=== PATIENT | male | born 1935 | race Caucasian/White ===

== ENCOUNTER 2018-05-13 17:18 | Inpatient (IN) | payer MEDICARE ==
[~2018-05-13] VITALS: Ht 157.5 cm; Wt 72.6 kg
[2018-05-13] VITALS (7 sets, daily range): BP systolic 71–100
[2018-05-13] MEDS ORDERED: NACL 0.9% 1,000 ML IV ONE ×3 (17:45→20:00)
[2018-05-13 17:57] LABS: BASOPHILS % (AUTO) 0.1 % (0.0-2.0); EOSINOPHILS % (AUTO) 0.1 % (0.0-4.0); HEMATOCRIT 38.9 % (36-54); HEMOGLOBIN 12.9 g/dL (14.0-18.0); LYMPHOCYTES # (AUTO) 0.7 K/uL (1.0-5.5); LYMPHOCYTES % (AUTO) 7.3 % (20.5-51.5); MEAN CORPUSCULAR HEMOGLOBIN 32 pg (27-31); MEAN CORPUSCULAR HGB CONC 33 % (32-36); MEAN CORPUSCULAR VOLUME 97 fL (79.0-98.0); MONOCYTES # (AUTO) 0.1 K/uL (0.0-1.0); MONOCYTES % (AUTO) 1.4 % (1.7-9.3); NEUTROPHILS # (AUTO) 8.6 K/uL (1.8-7.7); NEUTROPHILS % (AUTO) 91.1 % (40.0-70.0); PLATELET COUNT (AUTO) 175 K/uL (130-430); RED BLOOD CELL COUNT(AUTO) 4.01 MIL/uL (4.2-6.2); RED CELL DISTRIBUTION WIDTH 13.3 % (9.0-15.0); WHITE BLOOD COUNT (AUTO) 9.4 K/uL (4.8-10.8)
[2018-05-13 18:04] LABS: ANION GAP 15 (5-15); CALCIUM 8.8 mg/dL (8.4-11.0); CHLORIDE 100 mmol/L (98-107); CREATININE 1.61 mg/dL (0.55-1.30); GLUCOSE 168 mg/dL (70-99); POTASSIUM 3.4 mmol/L (3.5-5.1); SODIUM SERUM 137 mmol/L (136-145); UREA NITROGEN, BLOOD 24 mg/dL (8-21)
[2018-05-13 18:07] LABS: INR 1.1 (0.80-1.20); PROTHROMBIN TIME 11.5 SECS (9.5-12.5)
[2018-05-13 18:14] LABS: ALANINE AMINOTRANSFERASE 82 U/L (12-78); ALBUMIN 3.2 g/dL (3.4-4.8); ASPARTATE AMINOTRANSFERASE 152 U/L (10-37); FREE T4 (FREE THYROXINE) 1.3 ng/dl (0.8-1.5); TOTAL BILIRUBIN 0.9 mg/dL (0.0-1.0)
[2018-05-13 18:16] LABS: ALCOHOL, BLOOD < 3 mg/dL (<10)
[2018-05-13] MEDS ORDERED: POTASSIUM CHLORIDE 40 MEQ in NS 250 ML IV ONE (18:30)
[2018-05-13] MEDS ORDERED: ASPIRIN 81 MG TAB.CHEW PO ONE (18:30)
[2018-05-13] MEDS ORDERED: PIPERACILLIN/TAZO 3.375 GM in NS 50 ML IV ONE (18:45)
[2018-05-13] MEDS ORDERED: KCL 20 mEq in 100 mL (PREMIX) 200 ML IV ONE (18:55)
[2018-05-13] MEDS ORDERED: PIPERACILLIN/TAZOBACTAM 3.375 GM/VIAL (ZOSYN) IV ONE ×2 (19:22→20:27)
[2018-05-13 19:28] LABS: BILIRUBIN,URINE NEGATIVE (NEGATIVE); CLARITY/URINE SL CLOUDY (CLEAR); COLOR,URINE YELLOW (YELLOW); GLUCOSE,URINE NEGATIVE (NEGATIVE); KETONES,URINE 1+ (NEGATIVE); PH,URINE 5.5 (5.0-8.0); PROTEIN URINE 2+ (NEGATIVE)
[2018-05-13 19:29] LABS: BLOOD, URINE 3+ (NEGATIVE); LEUKOCYTE ESTERASE ,URINE 1+ (NEGATIVE); NITRITE, URINE POSITIVE (NEGATIVE)
[2018-05-13] MEDS: IPRATROPIUM/ALBUTEROL SULFATE 3 ML AMPUL.NEB (DUONEB) INH SCH (19:30)
[2018-05-13] MEDS ORDERED: ACETAMINOPHEN 650 MG SUPP.RECT RC PRN (19:30)
[2018-05-13] MEDS ORDERED: VANCOMYCIN HCL 1,000 MG in NS 250 ML IV ONE (19:30)
[2018-05-13] MEDS ORDERED: ENOXAPARIN SODIUM 60 MG/0.6 ML SYRINGE SUBCUT ONE (19:30)
[2018-05-13] MEDS ORDERED: FAMOTIDINE 20 MG TABLET PO ONE (19:45)
[2018-05-13 19:46] LABS: METHAMPHETAMINES SCREEN,URINE POSITIVE (NEG <=500)
[2018-05-13 19:48] LABS: BARBITURATE, URINE NEGATIVE (NEG <=200); BENZODIAZEPINE, URINE NEGATIVE (NEG <=150); CANNABINOID, URINE NEGATIVE (NEG <=50); COCAINE, URINE NEGATIVE (NEG <=150); OPIATE, URINE NEGATIVE (NEG <=100); PHENCYCLIDINE SCREEN,URINE NEGATIVE (NEG <=25); UR TRICYCLIC ANTIDEPRESSANTS NEGATIVE (NEG <=300); URINE AMPHETAMINE NEGATIVE (NEG <=500); URINE METHADONE NEGATIVE (NEG <=200); URINE OXYCODONE SCREEN NEGATIVE (NEG <=100); URINE PROPOXYPHENE SCREEN NEGATIVE (NEG <=300)
[2018-05-13 19:54] LABS: BACTERIA,URINE MANY /HPF (None Seen); MUCUS,URINE 1+ /LPF (None Seen); RBC,URINE 20-50 /HPF (0-3); URINE AMORPHOUS URATE 1+ /HPF (None Seen); WBC,URINE 80-100 /HPF (0-3)
[2018-05-13] MEDS ORDERED: D5/0.45 NS 1,000 ML IV SCH (20:00)
[2018-05-13] MEDS ORDERED: NOREPINEPHRINE 4 MG/4 ML VIAL IV ONE (20:04)
[2018-05-13 20:08] LABS: CKMB RELATIVE INDEX 0.6 (0.0-2.9); CREATINE KINASE MB 21.3 ng/mL (0-3.6)
[2018-05-13] MEDS ORDERED: VANCOMYCIN HCL 1000 MG/VIAL IV ONE (20:27)
[2018-05-13] MEDS: NACL 0.9% 1,000 ML IV SCH (21:21)
[2018-05-13 21:42] LABS: ANION GAP 14 (5-15); CALCIUM 7.6 mg/dL (8.4-11.0); CHLORIDE 106 mmol/L (98-107); GLUCOSE 143 mg/dL (70-99); POTASSIUM 3.7 mmol/L (3.5-5.1); SODIUM SERUM 140 mmol/L (136-145); UREA NITROGEN, BLOOD 25 mg/dL (8-21)
[2018-05-13 21:48] LABS: CREATININE 1.46 mg/dL (0.55-1.30)
[2018-05-13] MEDS: PIPERACILLIN/TAZO 3.375 GM in NS 50 ML IV SCH (21:57)
[2018-05-13] MEDS: HYDROCORTISONE SOD SUCC 100 MG/2 ML VIAL IVP SCH (21:57)
[2018-05-14] VITALS (24 sets, daily range): BP systolic 85–118
[2018-05-14] MEDS ORDERED: NOREPINEPHRINE 4 MG/4 ML VIAL IV ONE ×2 (01:02→13:00)
[2018-05-14] MEDS: NOREPINEPHRINE BITARTRATE 4 MG in NS 246 ML IV PRN ×2 (01:13→13:09)
[2018-05-14] MEDS: IPRATROPIUM/ALBUTEROL SULFATE 3 ML AMPUL.NEB (DUONEB) INH SCH ×2 (01:20→21:43)
[2018-05-14] MEDS: PIPERACILLIN/TAZO 3.375 GM in NS 50 ML IV SCH ×3 (06:13→21:23)
[2018-05-14] MEDS: HYDROCORTISONE SOD SUCC 100 MG/2 ML VIAL IVP SCH ×3 (06:13→21:24)
[2018-05-14] MEDS: INSULIN ASPART 100 UNITS/ML, 10 ML VIAL (NovoLOG) SUBCUT PRN ×3 (06:23→17:57)
[2018-05-14] MEDS: NACL 0.9% 1,000 ML IV SCH ×3 (08:04→21:15)
[2018-05-14] MEDS ORDERED: LISI-209 PO (08:10)
[2018-05-14] MEDS ORDERED: METO25TA3 PO (08:10)
[2018-05-14] MEDS ORDERED: MELO15TA13 PO (08:10)
[2018-05-14] MEDS ORDERED: SIMV40TA2 PO (08:10)
[2018-05-14] MEDS ORDERED: GLU500 PO (08:10)
[2018-05-14] MEDS ORDERED: TAMS-11 PO (08:10)
[2018-05-14 09:07] LABS: HEMATOCRIT 37.2 % (36-54); HEMOGLOBIN 12.2 g/dL (14.0-18.0); MEAN CORPUSCULAR HEMOGLOBIN 32 pg (27-31); MEAN CORPUSCULAR HGB CONC 33 % (32-36); MEAN CORPUSCULAR VOLUME 97 fL (79.0-98.0); PLATELET COUNT (AUTO) 166 K/uL (130-430); RED BLOOD CELL COUNT(AUTO) 3.84 MIL/uL (4.2-6.2); RED CELL DISTRIBUTION WIDTH 13.4 % (9.0-15.0); WHITE BLOOD COUNT (AUTO) 19.2 K/uL (4.8-10.8)
[2018-05-14] MEDS ORDERED: NS 250 ML IV ONE (09:15)
[2018-05-14] MEDS ORDERED: ASPIRIN 81 MG TAB.CHEW PO ONE (09:15)
[2018-05-14 11:08] LABS: BAND % (MANUAL) 17 % (0-6); BASOPHILS % (MANUAL) 0 % (0-2); EOSINOPHILS % (MANUAL) 0 % (0-7); LYMPHOCYTES % (MANUAL) 7 % (20-46); MONOCYTES % (MANUAL) 5 % (0-11)
[2018-05-14] MEDS ORDERED: NS 500 ML IV ONE (11:30)
[2018-05-14] MEDS: FAMOTIDINE 20 MG TABLET PO SCH (11:43)
[2018-05-14] MEDS ORDERED: traMADol HCL HCL 50 MG TABLET (ULTRAM) PO PRN (12:00)
[2018-05-14] MEDS: LEVOFLOXACIN 250 MG/D5W 50 ML IV SCH (12:59)
[2018-05-14 15:40] LABS: CKMB RELATIVE INDEX 1.1 (0.0-2.9); CREATINE KINASE MB 60.5 ng/mL (0-3.6)
[2018-05-15] VITALS (24 sets, daily range): BP systolic 86–134
[2018-05-15] MEDS: INSULIN ASPART 100 UNITS/ML, 10 ML VIAL (NovoLOG) SUBCUT PRN ×4 (00:06→17:38)
[2018-05-15] MEDS: IPRATROPIUM/ALBUTEROL SULFATE 3 ML AMPUL.NEB (DUONEB) INH SCH ×4 (01:00→19:46)
[2018-05-15] MEDS: NACL 0.9% 1,000 ML IV SCH (03:17)
[2018-05-15] MEDS: PIPERACILLIN/TAZO 3.375 GM in NS 50 ML IV SCH ×3 (06:13→21:46)
[2018-05-15] MEDS: HYDROCORTISONE SOD SUCC 100 MG/2 ML VIAL IVP SCH ×3 (06:14→21:46)
[2018-05-15 07:00] LABS: BASOPHILS % (AUTO) 0.1 % (0.0-2.0); EOSINOPHILS % (AUTO) 0.1 % (0.0-4.0); HEMOGLOBIN 11.3 g/dL (14.0-18.0); LYMPHOCYTES % (AUTO) 5.7 % (20.5-51.5); MEAN CORPUSCULAR HEMOGLOBIN 32 pg (27-31); MEAN CORPUSCULAR HGB CONC 33 % (32-36); MEAN CORPUSCULAR VOLUME 97 fL (79.0-98.0); MONOCYTES # (AUTO) 0.9 K/uL (0.0-1.0); MONOCYTES % (AUTO) 4.9 % (1.7-9.3); NEUTROPHILS # (AUTO) 15.7 K/uL (1.8-7.7); PLATELET COUNT (AUTO) 162 K/uL (130-430); RED BLOOD CELL COUNT(AUTO) 3.51 MIL/uL (4.2-6.2); RED CELL DISTRIBUTION WIDTH 13.9 % (9.0-15.0); WHITE BLOOD COUNT (AUTO) 17.6 K/uL (4.8-10.8)
[2018-05-15 07:24] LABS: ALANINE AMINOTRANSFERASE 120 U/L (12-78); ALBUMIN 2.3 g/dL (3.4-4.8); ANION GAP 11 (5-15); ASPARTATE AMINOTRANSFERASE 169 U/L (10-37); CALCIUM 7.5 mg/dL (8.4-11.0); CHLORIDE 108 mmol/L (98-107); CHOLESTEROL 70 mg/dL (<200); CREATININE 0.75 mg/dL (0.55-1.30); GLUCOSE 178 mg/dL (70-99); HDL CHOLESTEROL 15 mg/dL (>45); LDL CHOLESTEROL 33 mg/dL (<100); LIPASE 72 U/L (73-393); POTASSIUM 3.7 mmol/L (3.5-5.1); SODIUM SERUM 140 mmol/L (136-145); THYROID STIMULATING HORMONE 1.76 uIu/mL (0.34-4.82); TOTAL BILIRUBIN 0.3 mg/dL (0.0-1.0); TRIGLYCERIDES 83 mg/dL (30-150); UREA NITROGEN, BLOOD 16 mg/dL (8-21)
[2018-05-15 07:27] LABS: NEUTROPHILS % (AUTO) 89.2 % (40.0-70.0)
[2018-05-15] MEDS: ASPIRIN 81 MG TAB.CHEW PO SCH (08:59)
[2018-05-15] MEDS: FAMOTIDINE 20 MG TABLET PO SCH (08:59)
[2018-05-15 09:12] LABS: CKMB RELATIVE INDEX 0.9 (0.0-2.9); CREATINE KINASE MB 33.6 ng/mL (0-3.6)
[2018-05-15] MEDS ORDERED: NS 500 ML IV ONE (09:15)
[2018-05-15] MEDS: 0.45% NACL 1,000 ML IV SCH ×2 (10:58→21:46)
[2018-05-15] MEDS: LEVOFLOXACIN 250 MG/D5W 50 ML IV SCH (11:02)
[2018-05-16] VITALS (12 sets, daily range): BP systolic 92–119
[2018-05-16] MEDS: IPRATROPIUM/ALBUTEROL SULFATE 3 ML AMPUL.NEB (DUONEB) INH SCH ×2 (00:15→07:46)
[2018-05-16] MEDS ORDERED: HALOPERIDOL LACTATE 5 MG/ML VIAL ONE (03:29)
[2018-05-16] MEDS ORDERED: LORazepam 2 MG/ML VIAL IM ONE (03:30)
[2018-05-16] MEDS ORDERED: HALOPERIDOL LACTATE 5 MG/ML VIAL IM ONE (03:30)
[2018-05-16] MEDS: PIPERACILLIN/TAZO 3.375 GM in NS 50 ML IV SCH ×3 (06:00→13:13)
[2018-05-16] MEDS: HYDROCORTISONE SOD SUCC 100 MG/2 ML VIAL IVP SCH ×3 (06:00→13:12)
[2018-05-16] MEDS: FAMOTIDINE 20 MG TABLET PO SCH (09:41)
[2018-05-16] MEDS: ASPIRIN 81 MG TAB.CHEW PO SCH (09:41)
[2018-05-16 11:03] LABS: BASOPHILS % (AUTO) 0.1 % (0.0-2.0); HEMATOCRIT 32.7 % (36-54); HEMOGLOBIN 10.5 g/dL (14.0-18.0); LYMPHOCYTES # (AUTO) 0.7 K/uL (1.0-5.5); LYMPHOCYTES % (AUTO) 3.8 % (20.5-51.5); MEAN CORPUSCULAR HEMOGLOBIN 31 pg (27-31); MEAN CORPUSCULAR HGB CONC 32 % (32-36); MEAN CORPUSCULAR VOLUME 97 fL (79.0-98.0); MONOCYTES # (AUTO) 0.6 K/uL (0.0-1.0); MONOCYTES % (AUTO) 3.1 % (1.7-9.3); NEUTROPHILS # (AUTO) 16.5 K/uL (1.8-7.7); PLATELET COUNT (AUTO) 185 K/uL (130-430); RED BLOOD CELL COUNT(AUTO) 3.38 MIL/uL (4.2-6.2); WHITE BLOOD COUNT (AUTO) 17.8 K/uL (4.8-10.8)
[2018-05-16 11:23] LABS: ANION GAP 11 (5-15); CALCIUM 7.4 mg/dL (8.4-11.0); CHLORIDE 107 mmol/L (98-107); GLUCOSE 196 mg/dL (70-99); POTASSIUM 3.3 mmol/L (3.5-5.1); SODIUM SERUM 141 mmol/L (136-145); UREA NITROGEN, BLOOD 15 mg/dL (8-21)
[2018-05-16 11:40] LABS: ALANINE AMINOTRANSFERASE 110 U/L (12-78); ALBUMIN 2.3 g/dL (3.4-4.8); ASPARTATE AMINOTRANSFERASE 116 U/L (10-37); TOTAL BILIRUBIN 0.6 mg/dL (0.0-1.0)
[2018-05-16] MEDS ORDERED: POTASSIUM CHLORIDE 10 MEQ TAB.PRT.SR PO ONE (12:00)
[2018-05-16 12:07] LABS: CKMB RELATIVE INDEX 0.3 (0.0-2.9); CREATINE KINASE MB 6.8 ng/mL (0-3.6)
[2018-05-16] MEDS: INSULIN ASPART 100 UNITS/ML, 10 ML VIAL (NovoLOG) SUBCUT PRN (13:11)
== END 2018-05-16 14:05 | disposition short-term general hospital (02) | DRG 871 ==
LOC: SED 17:18 → SIC 18:52
PROVIDERS: ADMIT Internal Medicine; ATTEND Internal Medicine
DX: A41.9 Sepsis, unspecified organism (principal); R65.21 Severe sepsis with septic shock; N17.0 Acute kidney failure with tubular necrosis; I21.A1 Myocardial infarction type 2; M62.82 Rhabdomyolysis; N39.0 Urinary tract infection, site not specified; J84.9 Interstitial pulmonary disease, unspecified; I24.8 Other forms of acute ischemic heart disease; E87.6 Hypokalemia; B96.20 Unspecified Escherichia coli [E. coli] as the cause of diseases classified elsewhere; M25.552 Pain in left hip; N18.2 Chronic kidney disease, stage 2 (mild); E11.22 Type 2 diabetes mellitus with diabetic chronic kidney disease; I12.9 Hypertensive chronic kidney disease with stage 1 through stage 4 chronic kidney disease, or unspecified chronic kidney disease; E78.00 Pure hypercholesterolemia, unspecified; I25.10 Atherosclerotic heart disease of native coronary artery without angina pectoris; F17.210 Nicotine dependence, cigarettes, uncomplicated; Z95.5 Presence of coronary angioplasty implant and graft; Z87.01 Personal history of pneumonia (recurrent); Z95.1 Presence of aortocoronary bypass graft; Z79.82 Long term (current) use of aspirin; Z79.84 Long term (current) use of oral hypoglycemic drugs; Z79.899 Other long term (current) drug therapy; Z83.3 Family history of diabetes mellitus; Z82.49 Family history of ischemic heart disease and other diseases of the circulatory system
CPT/HCPCS: 36415; 36600; 70450-TC; 71045; 73502; 74018; 76700-TC; 78579; 78580-TC; 80048; 80053; 80061; 80307; 81000-TC; 82140-TC; 82533; 82550-TC; 82553-TC; 82803-TC; 82962; 83036; 83605; 83690-TC; 83735-TC; 83880; 84439; 84443-TC; 84484; 85007; 85025; 85027; 85379; 85610-TC; 86710; 87040-TC; 87081; 87086; 87186-TC; 87230-TC; 93005; 93306; 93970; 94640; 96361; 96365; 96367; 96368; 99291; A9539; A9540; G0482; J1630; J1650; J1720; J1815; J1956; J2543; J3370; J3480; J7030; J7040; J7050; J7620